=== PATIENT | male | born 1945 | race Asian ===

== ENCOUNTER 2020-10-25 13:45 | Emergency (ER) | payer OTHER ==
[~2020-10-25] VITALS: Ht 160 cm; Wt 68.2 kg
[2020-10-25] MEDS ORDERED: PROPARACAINE HCL 0.5% 15 ML OPHTHALMIC SOLUTION OU ONE (15:00)
[2020-10-25] MEDS ORDERED: FLUORESCEIN SODIUM 1 MG STRIP OD ONE (15:00)
[2020-10-25] MEDS ORDERED: FLUORESCEIN SODIUM 1 MG STRIP OS ONE (15:00)
[2020-10-25 15:51] VITALS: BP 157/91
[2020-10-25] MEDS ORDERED: ERYTHROMYCIN 0.5% 3.5 GM TUBE OPHTHALMIC OINTMENT OU ONE (16:15)
[2020-10-25] MEDS ORDERED: HYDROCODONE/ACETAMINOPHEN 5-325 MG TABLET PO ONE (17:00)
== END 2020-10-25 17:39 | disposition home or self-care (01) ==
LOC: EMS 13:53
DX: S05.02XA Injury of conjunctiva and corneal abrasion without foreign body, left eye, initial encounter (principal); H10.213 Acute toxic conjunctivitis, bilateral; E11.9 Type 2 diabetes mellitus without complications; S05.01XA Injury of conjunctiva and corneal abrasion without foreign body, right eye, initial encounter; X58.XXXA Exposure to other specified factors, initial encounter; Y93.89 Activity, other specified; Y92.89 Other specified places as the place of occurrence of the external cause; Y99.8 Other external cause status
CPT/HCPCS: 82962; 99284